=== PATIENT | female | born 1975 | race American Indian/Alaskan Native ===

== ENCOUNTER 2017-01-10 22:42 | Emergency (ER) | payer OTHER ==
[2017-01-10 22:50] VITALS: BP 126/66
[2017-01-10 23:25] LABS: Basophils % (Auto) 0.6 % (0.0-1.8); Hematocrit 30.4 % (30.3-42.9); Hemoglobin 9.8 gm/dl (10.1-14.3); Mean Corpuscular HGB Conc 32 % (30-34); Mean Corpuscular Volume 75 fl (79-97); Platelet Count 408 K/mm3 (140-440); Red Blood Count 4.07 M/mm3 (3.65-5.03); Red Cell Distribution Width 18.1 % (13.2-15.2); White Blood Count 9.5 K/mm3 (4.5-11.0)
[2017-01-10 23:38] LABS: Mean Corpuscular Hemoglobin 24 pg (28-32)
[2017-01-10 23:42] LABS: Alanine Aminotransferase 16 units/L (7-56); Albumin 3.8 g/dL (3.9-5); Alkaline Phosphatase 44 units/L (35-129); Anion Gap 17 mmol/L; Blood Urea Nitrogen 15 mg/dL (7-17); Carbon Dioxide 22 mmol/L (22-30); Chloride 97.1 mmol/L (98-107); Glucose 189 mg/dL (65-100); Potassium 3.6 mmol/L (3.6-5.0); Sodium 132 mmol/L (137-145); Total Protein 7.7 g/dL (6.3-8.2)
[2017-01-11 02:34] LABS: Bacteria,Urine 4+ /HPF (Negative); Bilirubin,Urine NEG (Negative); Blood,Urine MOD (Negative); Ketones,Urine NEG (Negative); Leukocyte Esterase,Urine MOD (Negative); Mucus,Urine 1+ /HPF; Nitrite,Urine NEG (Negative); Urobilinogen,Urine < 2.0 mg/dL (<2.0)
[2017-01-11 02:39] LABS: RBC,Urine > 182.0 /HPF (0.0-6.0); WBC,Urine > 182.0 /HPF (0.0-6.0)
== END 2017-01-11 00:31 | disposition left against medical advice (07) ==
LOC: ED 22:42
DX: R31.9 Hematuria, unspecified (principal); Z53.21 Procedure and treatment not carried out due to patient leaving prior to being seen by health care provider
CPT/HCPCS: 36415; 80053; 81001; 84703; 85025

== ENCOUNTER 2017-02-07 12:04 | Day surgery (SDC) | payer OTHER ==
[~2017-02-07 12:04] MED LIST: ANCEF/STERILE WATER 2 GM/20 ML 2 GM/20 ML SYRINGE IV NR; OMNIPAQUE 300 MG/50 ML (CATH LAB) IV ONE; WATER FOR IRRIG STERILE IR ONE
--- NOTE | 2017-02-07 13:24 | Anesthesia Consultation ---
Anesthesia Consult and Med Hx Date of service: 02/07/17 - Airway Anesthetic Teeth Evaluation: Good ROM Head & Neck: Adequate Mental/Hyoid Distance: Adequate Mallampati Class: Class II Intubation Access Assessment: Possibly Difficult - Pulmonary Exam CTA: Yes - Cardiac Exam Cardiac Exam: RRR - Pre-Operative Health Status ASA Pre-Surgery Classification: ASA3 Proposed Anesthetic Plan: General - Pulmonary Hx Smoking: No Hx Sleep Apnea: No (KAITLIN PRE SCREEN LOW RISK.) - Cardiovascular System Hx Hypertension: No - Central Nervous System Hx Psychiatric Problems: No - Endocrine Hx Non-Insulin Dependent Diabetes: Yes - Hematic Hx Anemia: Yes - Other Systems Hx Cancer: No Hx Obesity: Yes (BMI>50)
[2017-02-07] MEDS ORDERED: PERCOCET 5/325 PO PRN (13:25)
[2017-02-07] MEDS ORDERED: ZOFRAN IV PRN (13:25)
[2017-02-07] MEDS ORDERED: NEO SYNEPHRINE/NS Syringe(OR USE) IV ONE (13:30)
[2017-02-07] MEDS ORDERED: LASIX ONE (13:30)
[2017-02-07] MEDS ORDERED: METHERGINE IM ONE (13:30)
[2017-02-07] MEDS ORDERED: NACL 0.9% 1000 ML 1,000 ML IV SCH (14:00)
[2017-02-07] MEDS ORDERED: PEPCID IV NR (14:00)
[2017-02-07] MEDS ORDERED: VERSED IV NR (14:00)
[2017-02-07] MEDS ORDERED: SUBLIMAZE ONE (14:17)
[2017-02-07] MEDS ORDERED: DIPRIVAN 10 MG/ML IV ONE (14:17)
[2017-02-07] MEDS ORDERED: XYLOCAINE MPF 2% ONE (14:17)
--- NOTE | 2017-02-07 14:19 | Anesthesia Day of Surgery ---
Anesthesia Day of Surgery - Day of Surgery Patient Examined: Yes Patient H&P Reviewed: Yes Patient is NPO: Yes
[2017-02-07] MEDS ORDERED: ZOFRAN ONE (14:45)
[2017-02-07] MEDS ORDERED: DECADRON ONE (14:45)
[2017-02-07] MEDS ORDERED: WATER FOR IRRIG STERILE IR ONE (14:46)
[2017-02-07] MEDS ORDERED: OMNIPAQUE 300 MG/50 ML (CATH LAB) IV ONE (14:50)
[2017-02-07] MEDS ORDERED: METHYLENE BLUE ONE (15:01)
[2017-02-07] MEDS ORDERED: ePHEDrine SULFATE ONE (15:20)
--- NOTE | 2017-02-07 15:46 | Post Operative Note ---
Date of procedure: 02/07/17 Pre-op diagnosis: hermaturia Post-op diagnosis: same Findings: ulcers lesions Procedure: cysto biopsies tur lesions rpgs Anesthesia: GETA Surgeon: ANA MARÍA JORDAN Estimated blood loss: minimal Pathology: list (bladder) Specimen disposition: to lab Condition: stable Disposition: PACU
--- NOTE | 2017-02-07 15:47 | Discharge Summary ---
Short Stay Discharge Plan Activity: other (no straining ) Weight Bearing Status: Weight Bear as Tolerated Diet: low fat, low cholesterol, low salt Special Instructions: other (in fluiids ) Durable Medical Equipment Needed Upon Discharge: other (teach love care ) Follow up with: PRIMARY CARE,MD [Primary Care Provider] - 7 Days ANA MARÍA JORDAN MD [Staff Physician] - 7 Days
--- NOTE | 2017-02-07 15:54 | Operative Report ---
PREOPERATIVE DIAGNOSES: Gross hematuria, bladder lesions, bladder ulcers, recurrent bleeding. POSTOPERATIVE DIAGNOSES: Gross hematuria, bladder lesions, bladder ulcers, recurrent bleeding. PROCEDURE: Cystoscopy, biopsies, transurethral resection of bladder lesions. SURGEON: Jacky Alvarez MD ANESTHESIA: General. FINDINGS: This woman with recurrent bleeding. She now presents for treatment. She has had biopsies which showed severe inflammation. She was fine for a few months and started bleeding again. She now presents for repeat cystoscopy. DESCRIPTION OF PROCEDURE: The patient brought to the operating room and placed on the operating table. Following induction of anesthesia, placed in lithotomy position, prepped and draped in usual sterile fashion. Bimanual exam did not show any fixed masses. Upon entering the bladder, there was bloody urine and oozing from the posterior wall ulcer above the right orifice and also surrounding the bladder neck, there were lesions which looked to be inflammatory and polypoid. We biopsied the lesions. We did a retrograde and showed no persistent filling defects with a possible cyst in the left kidney. At this point, the resectoscope was placed. We resected the lesion on the left anterior lateral wall and obtained hemostasis. That area was oozing. The patient tolerated the procedure well. A 22 catheter was placed. Irrigation was clear, brought to recovery room. Family notified, in stable condition. JOB# [id number] LAKISHA/YARA
[2017-02-07] MEDS: DILAUDID IV PRN ×2 (16:03→16:11)
[2017-02-07] MEDS ORDERED: PERCOCET 5/325 ONE (16:15)
[2017-02-07] MEDS ORDERED: TORADOL IV PRN (16:52)
[2017-02-07 17:14] VITALS: BP 127/80
--- NOTE | 2017-02-08 16:40 | Fluoroscopy Report ---
RETROGRADE PYELOGRAM: History: Gross hematuria. There is adequate filling of the ureters and intrarenal collecting systems with no filling defects or anatomic abnormalities identified.
== END 2017-02-07 17:36 | disposition home or self-care (01) ==
LOC: OR 12:04
PROVIDERS: ATTEND Urology
DX: N30.01 Acute cystitis with hematuria (principal); N30.21 Other chronic cystitis with hematuria; N32.89 Other specified disorders of bladder; E11.9 Type 2 diabetes mellitus without complications; Z80.52 Family history of malignant neoplasm of bladder; Z80.51 Family history of malignant neoplasm of kidney; Z79.84 Long term (current) use of oral hypoglycemic drugs
CPT/HCPCS: 52005; 52204; 74420; 81025; 82962; 88305; C1758; J0690; J1100; J1170; J1885; J1940; J2210; J2250; J2370; J2405; J2704; J3010; J7030; Q9967; Q9968